=== PATIENT | male | born 1960 | race Caucasian/White ===

== ENCOUNTER 2016-08-26 02:49 | Emergency (ER) | payer OTHER ==
--- NOTE | 2016-08-26 07:06 | ER ---
ADMIT: 08/26/2016 RM/LOC: ER [facility] MR#: [id number] [id number] [place] [address] [place] [id number] Emergency Room Report SEX: M AGE: 56 : 1960 DATE: 08/26/2016 The patient is a 56-year-old male complaining of mid epigastric to left lower chest pain, radiating to back, associated with eructations, mild nausea. Denies any diaphoresis, exacerbating maneuvers. Does admit to eructations with relief. History of GERD. Cardiac risk factors include hyperlipidemia, hypertension, and family history of premature ischemic heart disease in brother. Exam remarkable for nontoxic, afebrile, anxious male, nontender to palpation. EKG sinus rhythm without ST-T or Q-wave change. No prior tracing. Chest x-ray, no acute findings. Hemoglobin 13.4. Normal CRP, lactic acid, lipase, potassium 3.5, alcohol 49, troponin less than 0.015. BNP 57, D-dimer 0.2. Patient received GI cocktail, Protonix, Toradol with relief of discomfort. Advised to follow up Shabnam Capone or [facility]ULA for ischemic heart evaluation. Otherwise, limit alcohol to no more than 24 ounces a day and nothing 4 hours before going to bed. Curtis Reyes MD/ diamond JOB #: [id number] CC: Curtis Reyes MD, Attending Physician Shabnam Son APRN, Family Physician Shabnam Son APRN
== END 2016-08-26 05:30 | disposition home or self-care (01) ==
LOC: ER 02:49
DX: K21.0 Gastro-esophageal reflux disease with esophagitis (principal); I10 Essential (primary) hypertension; E78.5 Hyperlipidemia, unspecified